=== PATIENT | female | born 1965 | race Caucasian/White ===

== ENCOUNTER 2016-06-12 16:02 | Emergency (ER) | payer SELFPAY ==
[2016-06-12] MEDS ORDERED: MULTIVITAMINS 10 ML, THIAMINE HCL 100 MG, FOLIC ACID 2 MG, MAGNESIUM SULFATE 1 G/2 ML 2... IV SCH ×5 (17:15)
[2016-06-12 17:25] LABS: ABSOLUTE NEUTROPHIL COUNT 4.7 K/mm3 (1.8-7.7); BASO % 0.1 % (0.2-1.0); EOS # 0.1 (0.0-0.5); EOS % 0.9 % (0.9-2.9); HEMATOCRIT 36.5 % (37.0-47.0); IMM NEUT # 0.1 K/mm3 (0-0.2); IMM NEUT% 1.2 % (0-1); LYMPH # 1.3 (1.0-4.8); LYMPH % 16.7 % (15-45); MEAN CELL VOLUME 94.3 fl (81.0-99.0); MEAN CORPUSCULAR HEMOGLOBIN 33.6 pg (27.0-31.0); MEAN CORPUSCULAR HGB CONC 35.6 g/dl (33.0-37.0); MONO # 1.7 (0.0-0.8); MONO % 21.4 % (4-12); NEUT % 59.7 % (43-75); PLATELET COUNT 41 K/mm3 (130-400); RED CELL DISTRIBUTION WIDTH 14.9 % (11.5-14.5)
[2016-06-12 17:31] LABS: I-STAT CREATININE 0.6 mg/dL (0.6-1.3)
--- NOTE | 2016-06-12 17:44 | CT ---
EXAMINATION: Noncontrast cranial CT. CLINICAL INDICATION: Headache for 3 weeks. TECHNIQUE: A noncontrast cranial CT scan was obtained. Axial images were acquired from just above the vertex through the skull base. 4 mm stacked axial, coronal, and sagittal reconstructions were reviewed. COMPARISONS: Prior exam dated 03/25/2012. FINDINGS: The CSF containing spaces are prominent throughout. There is diminished attenuation within the periventricular white matter tracts bilaterally. No acute intercranial hemorrhage, mass or mass effect is identified. No extra-axial fluid collections are detected. The visualized segments of the posterior fossa are unremarkable. The cerebellar pontine angle cisterns are symmetric. The osseous structures are intact. The paranasal sinuses are clear. The visualized portions of the orbits are unremarkable. The mastoid sinuses are normal and symmetric. IMPRESSION: Global diffuse atrophy with microvascular ischemic changes. No acute intracranial abnormalities are identified. The findings were uploaded to the electronic medical record for review at approximately 5:45 PM 06/12/2016
[2016-06-12 17:58] LABS: URINE BILIRUBIN NEGATIVE (NEGATIVE); URINE BLOOD 4+ (NEGATIVE); URINE GLUCOSE (UA) NEGATIVE (NEGATIVE); URINE LEUKOCYTE ESTERASE 2+ (NEGATIVE); URINE NITRITE NEGATIVE (NEGATIVE); URINE PROTEIN 1+ (NEGATIVE)
[2016-06-12 18:06] LABS: URINE APPEARANCE CLOUDY; URINE COLOR DARK YELLOW; URINE UROBILINOGEN 8 mg/dL (0-1 mg/dl)
[2016-06-12 18:11] LABS: URINE BACTERIA 2+; URINE EPITHELIAL CELLS 0-2 /hpf; URINE WBC >50 /hpf
[2016-06-12 18:21] LABS: BAND 6 % (0-10); BASOPHIL 0 % (0-1); EOSINOPHIL 1 % (1-3); LYMPHOCYTE 22 % (15-45); MONOCYTE 14 % (4-12); NEUTROPHILS 57 % (43-75); TOTAL CELLS COUNTED 100
[2016-06-12 18:22] LABS: PLATELET ESTIMATE DECREASED (NORMAL)
[2016-06-12] MEDS ORDERED: HYDROCODONE/ACETAMINOPHEN 5/325MG TABLET ONE (18:29)
[2016-06-12] MEDS ORDERED: CEFTRIAXONE 1 GRAM DUPLEX 50 ML IV ONE (18:43)
[2016-06-12] MEDS ORDERED: Potassium Chloride ORAL SOLN 20 MEQ/15 ML UDCUP ONE (18:45)
[2016-06-12 23:21] LABS: ALB/GLOB RATIO 0.7 (>1.0); CALCIUM 8.4 mg/dL (8.6-10.3); MAGNESIUM 1.9 mg/dL (1.9-2.7)
== END 2016-06-12 19:48 | disposition home or self-care (01) ==
LOC: ED 16:02
DX: N30.00 Acute cystitis without hematuria (principal); E87.6 Hypokalemia; F17.210 Nicotine dependence, cigarettes, uncomplicated
CPT/HCPCS: 83690; 82140; 85025; 82550; 87086; 80053; 80307; 87186; 83735; 84484; 81001; 70450; 99284 ×2; 96365; 96366; 96368; 82962; 93005; J3475; J3411; J7030; A9270 ×2; J0696